=== PATIENT | male | born 1955 | race Hispanic/Latino ===

== ENCOUNTER 2022-08-07 08:30 | Day surgery (SDC) | payer OTHER, MEDICARE ==
[2022-08-04 12:20] LABS: BASOPHILS % (AUTO) 0.5 % (0.0-5.0); EOSINOPHILS % (AUTO) 6.8 % (0.0-8.0); HEMATOCRIT 41.2 % (42-54); LYMPHOCYTES % (AUTO) 20.6 % (21.0-51.0); MEAN CORPUSCULAR HEMOGLOBIN 26.9 pg (27.0-33.0); MEAN CORPUSCULAR HGB CONC 31.6 g/dL (32.0-36.0); MEAN CORPUSCULAR VOLUME 85.1 fL (79-99); MONOCYTES % (AUTO) 9.9 % (3.0-13.0); NEUTROPHILS % (AUTO) 61.9 % (40.0-77.0); PLATELET COUNT (AUTO) 231 K/uL (130-400); RED BLOOD CELL COUNT(AUTO) 4.84 MIL/uL (4.50-6.20); RED CELL DISTRIBUTION WIDTH 14.6 % (11.0-15.5); WHITE BLOOD COUNT (AUTO) 6.2 K/uL (4.8-10.8)
[2022-08-04 12:42] LABS: INR 1.09 (0.85-1.15); PROTHROMBIN TIME 11.8 SEC (9.6-11.6)
[2022-08-04 12:44] LABS: PARTIAL THROMBOPLASTIN TIME 31.1 SEC (26.3-35.5)
[2022-08-04 12:53] LABS: POTASSIUM 4.4 mmol/L (3.5-5.1)
[2022-08-04 13:02] LABS: APPEARANCE,URINE CLEAR (CLEAR); BILIRUBIN,URINE NEGATIVE (NEGATIVE); COLOR,URINE LIGHT-YELLOW (YELLOW); GLUCOSE, URINE (UA) NEGATIVE (NEGATIVE); KETONES,URINE NEGATIVE (NEGATIVE); LEUKOCYTE ESTERASE ,URINE NEGATIVE Leu/uL (NEGATIVE); NITRATE,URINE NEGATIVE (NEGATIVE); OCCULT BLOOD,URINE NEGATIVE (NEGATIVE); PH,URINE 5.5 (5.0-8.0); PROTEIN,URINE NEGATIVE (NEGATIVE); UROBILINOGEN,URINE 0.2 mg/dL (0.2-1.0)
[2022-08-06 11:49] VITALS: BP 133/66
[2022-08-07] VITALS (17 sets, daily range): BP systolic 128–140; BP diastolic 68–82
[~2022-08-07] VITALS: Ht 172.7 cm; Wt 96.3 kg
[~2022-08-07 08:30] MED LIST: ATOR40TA69 PO; FENTANYL CITRATE PF 50 MCG/1 ML 5ML AMP IV ONE; FINA5TAB41 PO; GABA-529 PO; LEVO-70 PO; LISI5TAB21 PO; OMEP40CA21 PO; TAMS-1 PO
[2022-08-07] MEDS ORDERED: LACTATED RINGERS 1000ML 1,000 ML IV ONE (08:47)
[2022-08-07] MEDS ORDERED: GENTAMICIN 80 MG/NS 100 ML PB 100 ML IV ONE (08:47)
[2022-08-07] MEDS ORDERED: CEFTRIAXONE 1G VIAL ONE (08:47)
[2022-08-07] MEDS ORDERED: FENTANYL CITRATE PF 50 MCG/1 ML 5ML AMP IV ONE (09:59)
[2022-08-07] MEDS ORDERED: SUCCINYLCHOLINE CHLORIDE 20 MG/ML 10 ML VIAL ONE ×3 (12:50→12:56)
[2022-08-07] MEDS ORDERED: LIDOCAINE PF 100MG/5ML (2%) SYRINGE 5ML ONE (12:51)
[2022-08-07] MEDS ORDERED: PHENYLEPHRINE HCL 10 MG/ML 1ML VIAL IV ONE (12:51)
[2022-08-07] MEDS ORDERED: MIDAZOLAM HCL 1 MG/ML 2ML VIAL ONE (12:51)
[2022-08-07] MEDS ORDERED: ONDANSETRON 4MG INJ ONE (12:52)
[2022-08-07] MEDS ORDERED: FENTANYL CITRATE PF 50 MCG/1 ML 2ML VIAL ONE ×2 (12:52→14:19)
[2022-08-07] MEDS ORDERED: SUCCINYLCHOLINE 200MG/10ML SYR ONE (12:53)
[2022-08-07] MEDS ORDERED: PROPOFOL 10 MG/ML 20ML VIAL IV ONE (12:53)
[2022-08-07] MEDS ORDERED: CEFTRIAXONE 1G VIAL IV ONE (13:28)
[2022-08-07] MEDS ORDERED: KETOROLAC 30MG VIAL (30MG/ML) ONE (14:03)
[2022-08-07] MEDS ORDERED: DEXAMETHASONE SOD PHOSPHATE 10MG/ML 1ML VIAL ONE (14:03)
[2022-08-07] MEDS ORDERED: BACITRACIN 1 EACH PACKET TP ONE (15:39)
== END 2022-08-07 16:50 | disposition home or self-care (01) ==
LOC: DAH 08:30
PROVIDERS: ATTEND Urology
DX: N40.1 Benign prostatic hyperplasia with lower urinary tract symptoms (principal); Z20.822 Contact with and (suspected) exposure to COVID-19; R33.8 Other retention of urine; N13.8 Other obstructive and reflux uropathy; I10 Essential (primary) hypertension; E78.5 Hyperlipidemia, unspecified; Z79.899 Other long term (current) drug therapy; Z98.890 Other specified postprocedural states; Z79.01 Long term (current) use of anticoagulants; K44.9 Diaphragmatic hernia without obstruction or gangrene
CPT/HCPCS: 71045; 87426; 80048; 85025; 85610; 85730; 87088; 81003; 36415; 93005; 52648; A6260; A4663; J7120 ×2; A4354; J3010 ×3; J0330 ×4; J1100; J2001; J0696 ×2; J2250; J2704; J2405; J1885; J2370; J1580; A4358 ×2; A4930; A4215; A4223; A6402; A4222; A4221; A4335 ×2; A4554; A4600